=== PATIENT | female | born 1955 | race Caucasian/White ===

== ENCOUNTER 2016-10-11 07:47 | Inpatient (IN) | payer MEDICARE, BC ==
[2016-10-11] MEDS ORDERED: ALBUTEROL SULFATE 0.083% NEB 2.5 MG/3 ML AMPUL NEB ONE ×2 (08:25→12:29)
[2016-10-11] MEDS ORDERED: METHYLPREDNISOLONE INJ 125 MG/2 ML SDV IV ONE (08:25)
--- NOTE | 2016-10-11 08:42 | ER Document Report ---
ED Respiratory Problem - General Time seen by provider: 08:05 Mode of Arrival: Medic Information source: Patient, Emergency Med Personnel TRAVEL OUTSIDE OF THE [place] IN LAST 30 DAYS: No - HPI Patient complains to provider of: COPD, Short of breath Onset: Other - see HPI note Context: Hx COPD At home treatment: Oxygen EMS treatments: Oxygen Associated symptoms: Cough, Difficulty breathing, Hoarseness Similar symptoms previously: Yes Recently seen / treated by doctor: Yes <YOEL BENITEZ - Last Filed: 10/11/16 09:29> <FRANCES CEJA - Last Filed: 10/11/16 10:48> - General Chief Complaint: Breathing Difficulty Stated Complaint: DIFFICULTY BREATHING Notes: Patient is a 61 year old female presenting to the emergency department for difficulty breathing. Patient was diagnosed with pneumonia about 2-3 weeks ago. Pseudomona was cultured 3 weeks ago and the patient has been on tobramycin nebulizer treatments for the past week. Patient states her breathing became worse over the past 12 hours. Patient states it "feels like my lungs are swollen and I can't take a deep breath. Patient has a deep pitch rattle with her cough and states that the cough has gotten worse. Patient last had prednisone about 10-14 days ago. Patient also has a ZIO-XT patch on her left chest wall; this is a 14 day cardiac event monitor and patient's recycle coordinator is Dr. Travis Kaminski in [place]. Patient's primary care physician is Margarita BOJORQUEZ. Patient's licensing representative is Dr. Javier Pantoja in [place]. (YOEL BENITEZ) Patient reports that she saw her recycle coordinator couple weeks ago with complaints of some chest discomfort and palpitations. She was put on a 14 day monitor for this. Her troponin is elevated today, she is unaware if she has ever had a troponin done before and she does not know what it means. She does have a left bundle branch block today, the last EKG done here was 3 years ago and she did not have the bundle branch block then. (FRANCES CEJA) - Related Data Allergies/Adverse Reactions: pentazocine lactate [From Talwin] Allergy (Severe, Verified 02/08/16 06:37) jittery Past Medical History - General Information source: Patient - Social History Smoking Status: Former Smoker Chew tobacco use (# tins/day): No Frequency of alcohol use: None Drug Abuse: None Family History: Reviewed & Not Pertinent, Hypertension - Past Medical History Cardiac Medical History: Reports: Hx Atrial Fibrillation, Hx Hypercholesterolemia, Hx Hypertension Pulmonary Medical History: Reports: Hx Asthma - inhalers, Hx Bronchitis - hx of , Hx COPD - o2 dependent Endocrine Medical History: Reports: Hx Hypothyroidism Musculoskeltal Medical History: Reports Hx Arthritis - osteo, RA Psychiatric Medical History: Reports: Hx Anxiety, Hx Depression Past Surgical History: Reports: Hx Appendectomy, Hx Cholecystectomy, Hx Hysterectomy, Hx Orthopedic Surgery - back - Immunizations Hx Diphtheria, Pertussis, Tetanus Vaccination: Yes Hx Pneumococcal Vaccination: 08/22/14 <YOEL BENITEZ - Last Filed: 10/11/16 09:29> Review of Systems - Review of Systems Constitutional: No symptoms reported EENT: No symptoms reported Cardiovascular: No symptoms reported Respiratory: See HPI, Cough, Short of breath, Wheezing Gastrointestinal: No symptoms reported Genitourinary: No symptoms reported Female Genitourinary: No symptoms reported Musculoskeletal: No symptoms reported Skin: No symptoms reported Hematologic/Lymphatic: No symptoms reported Neurological/Psychological: No symptoms reported -: Yes All other systems reviewed and negative <YOEL BENITEZ - Last Filed: 10/11/16 09:29> Physical Exam - Vital signs Interpretation: Normal - General General appearance: Appears well, Alert In distress: Mild - HEENT Head: Normocephalic, Atraumatic Eyes: Normal Pupils: PERRL Nasal: Other - nasal cannula in place with oxygen Mucous membranes: Moist - Respiratory Respiratory status: No respiratory distress Chest status: Nontender, Other - ZIO-XT patch is present to the left anteior chest wall Breath sounds: Productive cough, Rhonchi, Wheezing, Other - deep pitch rattles or flutters with cough; this is worse but not a new symptom Chest palpation: Normal - Cardiovascular Rhythm: Regular Heart sounds: Normal auscultation Murmur: No - Abdominal Inspection: Normal Distension: No distension Bowel sounds: Normal Tenderness: Nontender Organomegaly: No organomegaly - Back Back: Normal, Nontender - Extremities General upper extremity: Normal inspection, Normal ROM, Normal strength General lower extremity: Normal inspection, Normal ROM, Normal strength - Neurological Neuro grossly intact: Yes Cognition: Normal Orientation: AAOx4 [place] Coma Scale Eye Opening: Spontaneous [place] Com[place] Scale Verbal: Oriented [place] Coma Scale Motor: Obeys Commands [place] Com[place] Scale Total: 15 Speech: Normal - Psychological Associated symptoms: Normal affect, Normal mood - Skin Skin Temperature: Warm Skin Moisture: Dry <YOEL BENITEZ - Last Filed: 10/11/16 09:29> Course - Laboratory Result Diagrams: 10/11/16 08:25 10/11/16 08:25 <YOEL BENITEZ - Last Filed: 10/11/16 09:29> - Laboratory Result Diagrams: 10/11/16 08:25 10/11/16 08:25 - Diagnostic Test Radiology reviewed: Image reviewed, Reports reviewed - Chest x-ray does not show any cardiopulmonary process. - EKG Interpretation by Me EKG shows normal: Sinus rhythm, Jonancy, Intervals, ST-T Waves. abnormal: QRS Complexes Rate: Normal - 73 Rhythm: NSR Jonancy/QRS: LBBB - Consults Antoinette Marquez Time consulted: 10:45 Consulted provider: will come to ER <MARCIALFRANCES - Last Filed: 10/11/16 10:48> - Vital Signs Vital signs: Temp Pulse Resp BP Pulse Ox 97.9 F 75 22 H 141/90 H 93 10/11/16 07:59 10/11/16 07:59 10/11/16 09:01 10/11/16 09:01 10/11/16 09:01 - Laboratory Laboratory results interpreted by me: 10/11/16 08:25 Chloride 92 L Carbon Dioxide 32 H BUN 21 H Creatinine 1.49 H Est GFR ( Amer) 43 L Est GFR (Non-Af Amer) 35 L Glucose 120 H AST 41 H Creatine Kinase 257 H Total Protein 8.3 H Discharge <YOEL BENITEZ - Last Filed: 10/11/16 09:29> - Discharge Admitting Provider: Hospitalist Unit Admitted: IMCU <FRANCES CEJA - Last Filed: 10/11/16 10:48> - Discharge Clinical Impression: Bronchopneumonia due to Pseudomonas species, Elevated troponin, Left bundle branch block (LBBB) on electrocardiogram COPD (chronic obstructive pulmonary disease) Qualifiers: COPD type: unspecified COPD Qualified Code(s): J44.9 - Chronic obstructive pulmonary disease, unspecified Condition: Stable Disposition: ADMITTED INPATIENT Referrals: ELENA,MARGARITA QUEVEDO, AUTO HAULER [Primary Care Provider] - Follow up as needed Scribe Attestation: 10/11/16 10:47 I personally performed the services described in the documentation, reviewed and edited the documentation which was dictated to the scribe in my presence, and it accurately records my words and actions. (FRANCES CEJA) Scribe Documentation - Scribe Written by Scribe:: Yoel Benitez 10/11/16 9:30 acting as scribe for :: Marcial <YOEL BENITEZ - Last Filed: 10/11/16 09:29>
[2016-10-11 09:06] LABS: ABSOLUTE BASOPHILS # (AUTO) 0.1 10^3/uL (0.0-0.2); ABSOLUTE EOSINOPHILS # (AUTO) 0.2 10^3/uL (0.0-0.6); ABSOLUTE LYMPHOCYTES (AUTO) 1.2 10^3/uL (0.5-4.7); ABSOLUTE MONOCYTES (AUTO) 0.5 10^3/uL (0.1-1.4); ABSOLUTE NEUT (AUTO) 5.8 10^3/uL (1.7-8.2); BASOPHILS % (AUTO) 0.9 % (0-2); EOSINOPHILS % (AUTO) 2.5 % (0-6); HEMATOCRIT 43.4 % (36.0-47.0); HEMOGLOBIN 14.5 g/dL (12.0-15.5); HGB HCT DIFFERENCE 0.1; MEAN CORPUSCULAR HEMOGLOBIN 30.3 pg (27.0-33.4); MEAN CORPUSCULAR HGB CONC 33.3 g/dL (32.0-36.0); MEAN CORPUSCULAR VOLUME 91 fl (80-97); RED BLOOD COUNT 4.77 10^6/uL (3.72-5.28); RED CELL DISTRIBUTION WIDTH 13.3 % (11.5-14.0); SEGMENTED NEUTROPHILS % (AUTO) 74.6 % (42-78); WHITE BLOOD COUNT 7.7 10^3/uL (4.0-10.5)
[2016-10-11 09:29] LABS: ALANINE AMINOTRANSFERASE 34 U/L (9-52); ALBUMIN 4.9 g/dL (3.5-5.0); ALKALINE PHOSPHATASE 95 U/L (38-126); ANION GAP 17 (5-19); ASPARTATE AMINO TRANSFERASE 41 U/L (14-36); BILIRUBIN,DIRECT 0.4 mg/dL (0.0-0.4); BILIRUBIN,TOTAL 0.8 mg/dL (0.2-1.3); BLOOD UREA NITROGEN 21 mg/dL (7-20); CALCIUM 9.9 mg/dL (8.4-10.2); CARBON DIOXIDE 32 mmol/L (22-30); CHLORIDE 92 mmol/L (98-107); CREATINE KINASE 257 U/L (30-135); CREATININE RESULT 1.49 mg/dL (0.52-1.25); GLUCOSE 120 mg/dL (75-110); SODIUM 140.5 mmol/L (137-145); TOTAL PROTEIN 8.3 g/dL (6.3-8.2)
[2016-10-11 09:42] LABS: CREATINE KINASE MB 4.28 ng/mL (<4.55)
[2016-10-11 09:51] LABS: TROPONIN I 0.174 ng/mL
[2016-10-11 10:08] LABS: APPEARANCE,URINE CLEAR; BILIRUBIN,URINE NEGATIVE (NEGATIVE); GLUCOSE, URINE NEGATIVE (NEGATIVE); KETONES,URINE NEGATIVE (NEGATIVE); LEUKOCYTE ESTERASE,URINE NEGATIVE (NEGATIVE); NITRITE,URINE NEGATIVE (NEGATIVE); PROTEIN,URINE NEGATIVE (NEGATIVE); UROBILINOGEN,URINE NEGATIVE mg/dL (<2.0)
[2016-10-11] MEDS ORDERED: ACETAMINOPHEN 325 MG TABLET PO PRN (11:06)
[2016-10-11] MEDS ORDERED: ENOXAPARIN SODIUM INJ 30 MG/0.3 ML DISP.SYRIN SUBCUT ONE (12:00)
[2016-10-11] MEDS ORDERED: METHYLPREDNISOLONE INJ 125 MG/2 ML SDV IV SCH ×2 (12:00→15:00)
[2016-10-11] MEDS ORDERED: LEVOFLOXACIN 500 MG/D5W RTU 500 MG/100 ML RTUPB IV ONE (12:00)
[2016-10-11] MEDS ORDERED: IPRATROPIUM/ALBUTEROL 0.5-2.5 MG/3 ML AMPUL NEB PRN (12:27)
[2016-10-11] MEDS ORDERED: LIDOCAINE 5% (700 MG) TRANSDERMAL ADH..PATCH TOP PRN (12:29)
[2016-10-11] MEDS ORDERED: CETIRIZINE 10 MG TABLET PO PRN (12:29)
[2016-10-11] MEDS ORDERED: DIPHENHYDRAMINE HCL 25 MG CAPSULE PO PRN (12:29)
[2016-10-11] MEDS ORDERED: CEFEPIME 2 GM/D5W RTU 2 GM/50 ML RTUPB IV SCH (13:00)
[2016-10-11] MEDS: IPRATROPIUM/ALBUTEROL 0.5-2.5 MG/3 ML AMPUL NEB SCH ×2 (13:31→19:36)
--- NOTE | 2016-10-11 13:59 | PDOC H&P ---
History of Present Illness Admission Date/PCP: 10/11/16 11:06 ELOINA EVANS Patient complains of: Shortness of breath and wheezing History of Present Illness: AMRIT MERIDA is a 61 year old female to [facility]'s emergency room by EMS this morning with difficulty breathing. Patient has a history of chronic bronchitis and COPD, on home oxygen at night. She states she's been on oxygen for the last 1 year. She states she's been treated for a community acquired pneumonia by her bean sorter in [place], Dr Javier Pantoja. She reports being on tobramycin nebulizers for the last several days for reported Pseudomonas infection. She states the nebulizers were ordered 2 weeks ago by her bean sorter however her insurance just agreed to cover them 3 days ago. She states she's had an intermittent productive cough, and wheezing. She denies any fevers, chills or right ears. She denies any chest pain or palpitations. She states today it felt like she was unable to take a deep breath and had wheezing despite using her nebulizer. She therefore called EMS and she was brought here. She has past medical history of COPD, chronic bronchitis, paroxysmal atrial fibrillation, peripheral vascular disease, chronic kidney disease stage III, essential hypertension, chronic back pain requiring opioid analgesics, and dyslipidemia. Past Medical History Cardiac Medical History: Reports: Atrial Fibrillation, Hyperlipidema, Hypertension Denies: Coronary Artery Disease, Myocardial Infarction - pvc Pulmonary Medical History: Reports: Asthma - inhalers, Bronchitis - hx of, Chronic Obstructive Pulmonary Disease (COPD) - o2 dependent Denies: Pneumonia, Tuberculosis EENT Medical History: Reports: None Neurological Medical History: Reports: None Denies: Seizures Endocrine Medical History: Reports: Hypothyroidism Renal/ Medical History: Reports: Chronic Kidney Disease Malignancy Medical History: Reports: None GI Medical History: Reports: None Musculoskeltal Medical History: Reports: Arthritis - osteo, RA Skin Medical History: Reports: None Psychiatric Medical History: Reports: Depression Traumatic Medical History: Reports: None Hematology: Denies: Anemia Infectious Medical History: Reports: None Past Surgical History Past Surgical History: Reports: Appendectomy, Cholecystectomy, Hysterectomy, Orthopedic Surgery - back Denies: Pacemaker Social History Information Source: Patient Lives with: Spouse/Significant other Smoking Status: Former Smoker Number of Years Smokin Last Time Smoked: 7 years ago Frequency of Alcohol Use: None Hx Recreational Drug Use: No Hx Prescription Drug Abuse: No - Advance Directive Resuscitation Status: Full Code Surrogate healthcare decision maker:: is her medical power of health care attorney Family History Family History: CAD, Hyperlipidemia, Hypertension Parental Family History Reviewed: Yes Children Family History Reviewed: Yes Sibling(s) Family History Reviewed.: Yes Medication/Allergy Home Medications: Albuterol Sulfate [Proair HFA Inhalation Aerosol 8.5 gm MDI] 1 puff IH Q4HP PRN 10/11/16 Budesonide/Formoterol Fumarate [Symbicort HFA 160-4.5 mcg Inhaler 6 gm] 2 puff IH BID 10/11/16 Cetirizine HCl [Zyrtec 10 mg Tablet] 10 mg PO DAILYP PRN 10/11/16 Cilostazol 50 mg PO BID 10/11/16 Cyclobenzaprine HCl [Flexeril 10 mg Tablet] 10 mg PO QPM 10/11/16 Diclofenac Sodium [Voltaren] 1 gm TOP QIDP PRN 10/11/16 Diphenhydramine HCl [Benadryl 25 mg Capsule] 25 mg PO DAILYP PRN 10/11/16 Fentanyl [Duragesic 25 mcg/hr Transdermal Patch] 1 patch TOP Q2D 10/11/16 Flecainide Acetate [Tambocor 100 mg Tablet] 100 mg PO Q12@0800,2000 10/11/16 Furosemide [Lasix] 20 mg PO QAM 10/11/16 Hydroxychloroquine Sulfate [Plaquenil 200 mg Tablet] 200 mg PO BID 10/11/16 Ipratropium/Albuterol Sulfate [Duoneb 3 ml Ampul] 1 vial NEB Q4HP PRN 10/11/16 Lidocaine [Lidoderm 5% (700 mg) Transdermal Patch] 1 patch TOP DAILYP PRN Losartan Potassium [Cozaar 25 mg Tablet] 25 mg PO DAILY 10/11/16 Metoprolol Succinate [Toprol Xl 25 mg Tab.sr] 12.5 mg PO DAILY 10/11/16 Oxycodone HCl/Acetaminophen [Percocet 10-325 mg Tablet] 1 tab PO TID 10/11/16 Potassium Chloride [Klor-Con 10 Meq Tablet.sa] 10 meq PO QAM 10/11/16 Tiotropium [place] [Spiriva Respimat] 2 puff IH BID 10/11/16 Tobramycin in 0.225% NaCl [Tobramycin 300 mg/5 ml Ampule] 1 vial NEB BID Vilazodone Hydrochloride [Viibryd] 20 mg PO DAILY 10/11/16 Allergies/Adverse Reactions: pentazocine lactate [From Talanastacia] Allergy (Severe, Verified 02/08/16 06:37) jittery Review of Systems Constitutional: PRESENT: weakness Cardiovascular: PRESENT: dyspnea on exertion Respiratory: PRESENT: cough, dyspnea, sputum Gastrointestinal: ABSENT: abdominal pain, constipation, diarrhea, hematemesis, hematochezia, nausea, vomiting Genitourinary: ABSENT: dysuria, hematuria Musculoskeletal: PRESENT: back pain Integumentary: ABSENT: rash, wounds Neurological: ABSENT: abnormal gait, abnormal speech, confusion, dizziness, focal weakness, syncope Psychiatric: PRESENT: anxiety Endocrine: ABSENT: cold intolerance, heat intolerance, polydipsia, polyuria Hematologic/Lymphatic: ABSENT: easy bleeding, easy bruising Physical Exam Vital Signs: Temp Pulse Resp BP Pulse Ox 97.9 F 75 22 H 127/86 H 92 10/11/16 07:59 10/11/16 07:59 10/11/16 13:00 10/11/16 11:01 10/11/16 13:00 General appearance: PRESENT: no acute distress, well-developed, well-nourished Head exam: PRESENT: atraumatic, normocephalic Eye exam: PRESENT: conjunctiva pink, EOMI, PERRLA. ABSENT: scleral icterus Ear exam: PRESENT: normal external ear exam Mouth exam: PRESENT: moist, tongue midline Neck exam: ABSENT: carotid bruit, JVD, lymphadenopathy, thyromegaly Respiratory exam: PRESENT: prolonged expiratory phas - bilaterally, symmetrical , unlabored, wheezes Cardiovascular exam: PRESENT: RRR. ABSENT: diastolic murmur, rubs, systolic murmur Pulses: PRESENT: normal dorsalis pedis pul Vascular exam: PRESENT: normal capillary refill GI/Abdominal exam: PRESENT: normal bowel sounds, soft. ABSENT: distended, guarding, mass, organolmegaly, rebound, tenderness Rectal exam: PRESENT: deferred Extremities exam: PRESENT: full ROM. ABSENT: calf tenderness, clubbing, pedal edema Musculoskeletal exam: PRESENT: ambulatory, full ROM, normal inspection Neurological exam: PRESENT: alert, awake, oriented to person, oriented to place , oriented to time, oriented to situation, CN II-XII grossly intact. ABSENT: motor sensory deficit Psychiatric exam: PRESENT: anxious Skin exam: PRESENT: dry, intact, warm. ABSENT: cyanosis, rash Results Laboratory Results: 10/11/16 12:02 Troponin I 0.880 Impressions: Chest X-Ray 10/11/16 07:56 IMPRESSION: No acute cardiopulmonary disease. Assessment & Plan - Diagnosis (1) Bronchopneumonia due to Pseudomonas species Is this a current diagnosis for this admission?: YesPlan: Patient was started on IV Levaquin and cefepime. She was given IV methylprednisolone, IV magnesium and DuoNeb nebulizers. We will continue her Spiriva and Symbicort. (2) Obstructive chronic bronchitis with exacerbation Is this a current diagnosis for this admission?: YesPlan: Continue IV methylprednisolone, IV broad-spectrum antibiotics and nebulizer treatments. (3) Elevated troponin Is this a current diagnosis for this admission?: YesPlan: Most likely secondary to COPD exacerbation, however she does have a left bundle branch block with no prior EKG for comparison. We will do serial troponins she rules in for a non-STEMI we will transfer to a tertiary center. She sees Dr. Kaminski at [facility]. (4) Left bundle branch block (LBBB) on electrocardiogram Is this a current diagnosis for this admission?: Yes (5) GERD (gastroesophageal reflux disease) Qualifiers: Esophagitis presence: esophagitis presence not specified Qualified Code(s): K21.9 - Gastro-esophageal reflux disease without esophagitis Is this a current diagnosis for this admission?: Yes (6) Chronic pain Qualifiers: Chronic pain type: other chronic pain Qualified Code(s): G89.29 - Other chronic pain Is this a current diagnosis for this admission?: YesPlan: Patient has chronic neck and back pain during opioid analgesics. We'll continue her home medications. - Time Time Spent: 50 to 70 Minutes Critical Time spent with patient: 25-34 minutes Medications reviewed and adjusted accordingly: Yes
[2016-10-11] MEDS ORDERED: MAGNESIUM SULFATE/D5W 100 ML IV SCH (14:00)
[2016-10-11] MEDS ORDERED: OXYCODONE HCL SR 10 MG TABLET PO SCH (14:00)
--- NOTE | 2016-10-11 15:44 | PDOC TRANSFER SUMMARY ---
General Admission Date/PCP: 10/11/16 11:06 ELOINA EVANS Admission Date: 10/11/16 Transfer Date: 10/11/16 Accepting Facility: [facility] Resuscitation Status: Full Code - Transfer Diagnosis (1) NSTEMI (non-ST elevated myocardial infarction) Is this a current diagnosis for this admission?: YesDiagnosis Summary: Initial troponin was elevated at 0.174, repeat troponin 4 hours later increased to 0.88, will monitor another troponin in 6 hours. She has a new left bundle branch block on EKG compared to previous EKG here. She denies any chest pain only shortness of breath and dyspnea. (2) Bronchopneumonia due to Pseudomonas species Is this a current diagnosis for this admission?: YesDiagnosis Summary: Patient was recently started on tobramycin nebulizers for reported Pseudomonas bronchial pneumonia. There ordered 2 weeks ago she states she just came nebulizers 2 days ago (3) Obstructive chronic bronchitis with exacerbation Is this a current diagnosis for this admission?: Yes (4) Elevated troponin Is this a current diagnosis for this admission?: Yes (5) Left bundle branch block (LBBB) on electrocardiogram Is this a current diagnosis for this admission?: Yes (6) GERD (gastroesophageal reflux disease) Is this a current diagnosis for this admission?: Yes (7) Chronic pain Is this a current diagnosis for this admission?: Yes - Transfer Medications Home Medications: Albuterol Sulfate [Proair HFA Inhalation Aerosol 8.5 gm MDI] 1 puff IH Q4HP PRN 10/11/16 Budesonide/Formoterol Fumarate [Symbicort HFA 160-4.5 mcg Inhaler 6 gm] 2 puff IH BID 10/11/16 Cetirizine HCl [Zyrtec 10 mg Tablet] 10 mg PO DAILYP PRN 10/11/16 Cilostazol 50 mg PO BID 10/11/16 Cyclobenzaprine HCl [Flexeril 10 mg Tablet] 10 mg PO QPM 10/11/16 Diclofenac Sodium [Voltaren] 1 gm TOP QIDP PRN 10/11/16 Diphenhydramine HCl [Benadryl 25 mg Capsule] 25 mg PO DAILYP PRN 10/11/16 Fentanyl [Duragesic 25 mcg/hr Transdermal Patch] 1 patch TOP Q2D 10/11/16 Flecainide Acetate [Tambocor 100 mg Tablet] 100 mg PO Q12@0800,2000 10/11/16 Furosemide [Lasix] 20 mg PO QAM 10/11/16 Hydroxychloroquine Sulfate [Plaquenil 200 mg Tablet] 200 mg PO BID 10/11/16 Ipratropium/Albuterol Sulfate [Duoneb 3 ml Ampul] 1 vial NEB Q4HP PRN 10/11/16 Lidocaine [Lidoderm 5% (700 mg) Transdermal Patch] 1 patch TOP DAILYP PRN Losartan Potassium [Cozaar 25 mg Tablet] 25 mg PO DAILY 10/11/16 Metoprolol Succinate [Toprol Xl 25 mg Tab.sr] 12.5 mg PO DAILY 10/11/16 Oxycodone HCl/Acetaminophen [Percocet 10-325 mg Tablet] 1 tab PO TID 10/11/16 Potassium Chloride [Klor-Con 10 Meq Tablet.sa] 10 meq PO QAM 10/11/16 Tiotropium [place] [Spiriva Respimat] 2 puff IH BID 10/11/16 Tobramycin in 0.225% NaCl [Tobramycin 300 mg/5 ml Ampule] 1 vial NEB BID Vilazodone Hydrochloride [Viibryd] 20 mg PO DAILY 10/11/16 Transfer Medications: Current Medications Acetaminophen (Tylenol 325 Mg Tablet) 650 mg PO Q4HP PRN PRN Reason: pain or temp greater than 101F Stop: 11/10/16 11:05 Albuterol (Ventolin 0.083% Neb 2.5 Mg/3 Ml Ampul) 2.5 mg NEB RTQ2HP PRN PRN Reason: SHORTNESS OF BREATH Stop: 11/10/16 13:13 Albuterol/Ipratropium (Duoneb 3 Ml Ampul) 3 ml NEB RTQ2HP PRN Stop: 11/10/16 12:26 Albuterol/Ipratropium (Duoneb 3 Ml Ampul) 3 ml NEB [id number] [facility] Stop: 11/10/16 13:59 Last Admin: 10/11/16 13:31 Dose: 3 ml Budesonide/Formoterol Fumarate (Symbicort Hfa 160-4.5 Mcg Inhaler 6 Gm) 2 puff IH BID [facility] Stop: 11/10/16 17:59 Cetirizine HCl (Zyrtec 10 Mg Tablet) 10 mg PO DAILYP PRN PRN Reason: SPRING [employer]ERG[employer] Stop: 11/10/16 12:28 Cilostazol (Pletal 100 Mg Tablet) 50 mg PO Q12 RAMÍRE[facility] Stop: 11/10/16 21:59 Cyclobenzaprine HCl (Flexeril 10 Mg Tablet) 10 mg PO QPM RAMÍRE[facility] Stop: 11/10/16 17:59 Diphenhydramine HCl (Benadryl 25 Mg Capsule) 25 mg PO DAILYP PRN PRN Reason: SPRING [employer]ERG[employer] Stop: 11/10/16 12:28 Enoxaparin Sodium (Lovenox Inj 30 Mg/0.3 Ml Disp.Syrin) 30 mg SUBCUT QAM [facility] Stop: 11/11/16 07:59 Fentanyl (Duragesic 25 Mcg/Hr Transdermal Patch) 1 each TOP Q3D@1400 [facility] Stop: 10/18/16 13:59 Flecainide Acetate (Tambocor 100 Mg Tablet) 100 mg PO Q12@0800,2000 [facility] Stop: 11/10/16 19:59 Furosemide (Lasix 20 Mg Tablet) 20 mg PO QAM [facility]RE[facility] Stop: 11/11/16 07:59 Hydroxychloroquine Sulfate (Plaquenil 200 Mg Tablet) 200 mg PO BID [facility] Stop: 11/10/16 17:59 Cefepime HCl (Maxipime Rtu 2 Gm-D5w 50 Ml Premix Bag) 2 gm in 50 mls @ 100 mls/ hr IV DAILY@1300 [facility] Stop: 10/18/16 12:59 Levofloxacin/Dextrose (Levaquin Rtu 250 Mg/D5w 50 Ml Premix) 250 mg in 50 mls @ 50 mls/hr IV QPM [facility] Stop: 10/19/16 17:59 Magnesium Sulfate/Dextrose (Magnesium Sulfate Rtu-D5w 1 Gm/100 Ml Premix) 100 mls @ 100 mls/hr IV Q1H [facility] Stop: 10/11/16 15:59 Lidocaine (Lidoderm 5% (700 Mg) Transdermal Patch) 1 patch TOP DAILYP PRN PRN Reason: BACK PAIN Stop: 11/10/16 12:28 Lorazepam (Ativan 0.5 Mg Tablet) 0.5 mg PO Q6HP PRN Stop: 10/18/16 11:36 Methylprednisolone Sodium Succinate (Solu-Medrol Inj/Pf 125 Mg/2 Ml Sdv) 125 mg IV Q6A [facility] Stop: 11/10/16 14:59 Oxycodone HCl (Oxycontin Sr 10 Mg Tablet) 10 mg PO Q8 [facility] Stop: 10/18/16 13:59 Sodium Chloride (Saline Flush 2.5 Ml Monoject Prefil Syrin) 2.5 ml IV Q8 [facility] Stop: 11/10/16 13:59 - Allergies Allergies/Adverse Reactions: pentazocine lactate [From Talwin] Allergy (Severe, Verified 02/08/16 06:37) jittery - Diet/Activity Discharge Diet: Cardiac Discharge Activity: Activity As Tolerated, Balance Activity w/Rest Physical Exam Vital Signs: Temp Pulse Resp BP Pulse Ox 98.8 F 105 H 23 H 122/68 89 L 10/11/16 14:42 10/11/16 13:31 10/11/16 14:00 10/11/16 14:29 10/11/16 14:29 General appearance: PRESENT: no acute distress, well-developed, well-nourished Head exam: PRESENT: atraumatic, normocephalic Eye exam: PRESENT: conjunctiva pink, EOMI, PERRLA. ABSENT: scleral icterus Ear exam: PRESENT: normal external ear exam Mouth exam: PRESENT: moist, tongue midline Neck exam: ABSENT: carotid bruit, JVD, lymphadenopathy, thyromegaly Respiratory exam: PRESENT: decreased breath sounds - mild bilateral expiratory wheezes, symmetrical, unlabored, wheezes Cardiovascular exam: PRESENT: RRR. ABSENT: diastolic murmur, rubs, systolic murmur Pulses: PRESENT: normal carotid pulses Vascular exam: PRESENT: normal capillary refill GI/Abdominal exam: PRESENT: normal bowel sounds, soft. ABSENT: distended, guarding, mass, organolmegaly, rebound, tenderness Rectal exam: PRESENT: deferred Extremities exam: PRESENT: full ROM. ABSENT: calf tenderness, clubbing, pedal edema Musculoskeletal exam: PRESENT: ambulatory, full ROM, normal inspection Neurological exam: PRESENT: alert, awake, oriented to person, oriented to place , oriented to time, oriented to situation, CN II-XII grossly intact. ABSENT: motor sensory deficit Psychiatric exam: PRESENT: anxious, appropriate affect, normal mood. ABSENT: homicidal ideation, suicidal ideation Skin exam: PRESENT: dry, intact, warm. ABSENT: cyanosis, rash Results Laboratory Results: 10/11/16 12:02 Troponin I 0.880 Impressions: Chest X-Ray 10/11/16 07:56 IMPRESSION: No acute cardiopulmonary disease. Plan Discharge Plan: Transfer to [facility] for higher level of care. Interventional cardiology Time Spent: Less than 30 Minutes
[2016-10-11] MEDS ORDERED: ASPIRIN 81 MG TABLET, CHEWABLE PO ONE (16:00)
[2016-10-11] MEDS: ALBUTEROL SULFATE 0.083% NEB 2.5 MG/3 ML AMPUL NEB PRN (17:16)
[2016-10-11] MEDS: FENTANYL 25 MCG/HR PATCH.TD72 TOP SCH (18:07)
[2016-10-11] MEDS: CYCLOBENZAPRINE HCL 10 MG TABLET PO SCH (18:26)
[2016-10-11] MEDS: BUDESONIDE/FORMOTEROL 160-4.5 MCG 60 PUFF/6 GM MDI IH SCH (18:29)
[2016-10-11] MEDS: CEFEPIME HCL 2 GM in DEXTROSE 5%-WATER 50 ML IV SCH (18:32)
[2016-10-11] MEDS: HYDROXYCHLOROQUINE SULFATE 200 MG TABLET PO SCH (18:32)
[2016-10-11] MEDS: LORAZEPAM 0.5 MG TABLET PO PRN (20:10)
[2016-10-11 20:23] LABS: ARTERIAL BLOOD BASE EXCESS 4.3 mmol/L; ARTERIAL BLOOD O2 SATURATION 85.5 % (94-98)
--- NOTE | 2016-10-11 21:14 | EKG REPORT ---
SEVERITY:- ABNORMAL ECG - SINUS RHYTHM LEFT BUNDLE BRANCH BLOCK : Confirmed by: Zarina Nicole 11-Oct-2016 21:14:31
[2016-10-11] MEDS: FLECAINIDE ACETATE 100 MG TABLET PO SCH (21:59)
[2016-10-11] MEDS: CILOSTAZOL 100 MG TABLET PO SCH (21:59)
[2016-10-11] MEDS ORDERED: CILOSTAZOL 100 MG TABLET PO SCH (22:00)
[2016-10-11] MEDS: SIMVASTATIN 10 MG TABLET PO SCH (22:00)
[2016-10-12] MEDS: METHYLPREDNISOLONE INJ 125 MG/2 ML SDV IV SCH ×4 (00:25→17:11)
[2016-10-12] MEDS: OXYCODONE HCL SR 10 MG TABLET PO SCH ×3 (01:26→17:10)
[2016-10-12] MEDS: LORAZEPAM 0.5 MG TABLET PO PRN ×3 (05:45→17:09)
[2016-10-12 05:58] LABS: HEMATOCRIT 41.2 % (36.0-47.0); HEMOGLOBIN 14.2 g/dL (12.0-15.5); HGB HCT DIFFERENCE 1.4; MEAN CORPUSCULAR HEMOGLOBIN 30.8 pg (27.0-33.4); MEAN CORPUSCULAR HGB CONC 34.5 g/dL (32.0-36.0); MEAN CORPUSCULAR VOLUME 89 fl (80-97); RED BLOOD COUNT 4.62 10^6/uL (3.72-5.28); RED CELL DISTRIBUTION WIDTH 12.9 % (11.5-14.0); WHITE BLOOD COUNT 7.9 10^3/uL (4.0-10.5)
[2016-10-12 06:16] LABS: ANION GAP 14 (5-19); BLOOD UREA NITROGEN 23 mg/dL (7-20); CALCIUM 9.7 mg/dL (8.4-10.2); CARBON DIOXIDE 27 mmol/L (22-30); CHLORIDE 92 mmol/L (98-107); CHOLESTEROL 250.91 mg/dL (0-200); CREATININE RESULT 1.31 mg/dL (0.52-1.25); Direct HDL 72 mg/dL (>40); GLUCOSE 156 mg/dL (75-110); SODIUM 133.4 mmol/L (137-145); TRIGLYCERIDES 83 mg/dL (<150)
[2016-10-12 06:27] LABS: DIRECT LDL 142 mg/dL (<100)
[2016-10-12] MEDS: IPRATROPIUM/ALBUTEROL 0.5-2.5 MG/3 ML AMPUL NEB SCH ×3 (07:51→19:56)
[2016-10-12] MEDS ORDERED: ENOXAPARIN SODIUM INJ 30 MG/0.3 ML DISP.SYRIN SUBCUT SCH (08:00)
[2016-10-12] MEDS: ENOXAPARIN SODIUM INJ 40 MG/0.4 ML DISP.SYRIN SUBCUT SCH (09:30)
[2016-10-12] MEDS: CARVEDILOL 3.125 MG TABLET PO SCH ×2 (09:31→22:51)
[2016-10-12] MEDS: FUROSEMIDE 20 MG TABLET PO SCH (09:31)
[2016-10-12] MEDS: HYDROXYCHLOROQUINE SULFATE 200 MG TABLET PO SCH ×2 (09:32→17:11)
[2016-10-12] MEDS: FLECAINIDE ACETATE 100 MG TABLET PO SCH ×2 (09:32→19:53)
[2016-10-12] MEDS: ASPIRIN 81 MG TABLET, ENT COATED PO SCH (09:32)
[2016-10-12] MEDS: BUDESONIDE/FORMOTEROL 160-4.5 MCG 60 PUFF/6 GM MDI IH SCH ×2 (09:33→17:12)
[2016-10-12] MEDS: CILOSTAZOL 100 MG TABLET PO SCH ×2 (09:34→22:52)
[2016-10-12] MEDS: ALBUTEROL SULFATE 0.083% NEB 2.5 MG/3 ML AMPUL NEB PRN (12:15)
[2016-10-12] MEDS ORDERED: TOBRAMYCIN SULFATE INJ 80 MG/2 ML VIAL NEB SCH (15:00)
[2016-10-12] MEDS ORDERED: TOBRAMYCIN SULFATE NEB 40 MG/ML 30 ML NEB SCH (16:00)
[2016-10-12] MEDS ORDERED: TOBRAMYCIN SULFATE NEB 40 MG/ML 30 ML NEB ONE (16:00)
--- NOTE | 2016-10-12 16:35 | PDOC PROGRESS REPORT ---
Subjective Progress Note for:: 10/12/16 Subjective:: Patient seen on morning rounds. She is on high flow nasal cannula at 50% FIO2. She got dyspneic early this morning when she got up to go to the bathroom and became wheezy and short of breath. She is improved at the time. She also ruled in for a NSTEMI, myocardial infarction. She has no chest pain. She has no prior history of coronary artery disease. She does have a history of atrial fibrillation, She has been sinus rhythm overnight. She states she has other episodes of similar respiratory events. Rest of the review of systems is negative Physical Exam Vital Signs: Temp Pulse Resp BP Pulse Ox 98.7 F 82 18 137/74 H 91 L 10/12/16 12:03 10/12/16 14:12 10/12/16 14:12 10/12/16 12:03 10/12/16 12:03 Intake & Output 10/11/16 10/12/16 10/13/16 06:59 06:59 06:59 Intake Total 745 237 Balance 745 237 Weight 92.2 kg General appearance: PRESENT: no acute distress, obese, well-developed, well- nourished Head exam: PRESENT: atraumatic, normocephalic Eye exam: PRESENT: conjunctiva pink, EOMI, PERRLA. ABSENT: scleral icterus Ear exam: PRESENT: normal external ear exam Mouth exam: PRESENT: dry mucosa Neck exam: ABSENT: carotid bruit, JVD, lymphadenopathy, thyromegaly Respiratory exam: PRESENT: symmetrical, unlabored, wheezes - expiratory bilaterally Cardiovascular exam: PRESENT: RRR. ABSENT: diastolic murmur, rubs, systolic murmur Pulses: PRESENT: normal dorsalis pedis pul Vascular exam: PRESENT: normal capillary refill GI/Abdominal exam: PRESENT: normal bowel sounds, soft. ABSENT: distended, guarding, mass, organolmegaly, rebound, tenderness Rectal exam: PRESENT: deferred Extremities exam: ABSENT: calf tenderness, clubbing, pedal edema Musculoskeletal exam: PRESENT: ambulatory, tenderness Neurological exam: PRESENT: alert, awake, oriented to person, oriented to place , oriented to time, oriented to situation, CN II-XII grossly intact. ABSENT: motor sensory deficit Psychiatric exam: PRESENT: appropriate affect, normal mood. ABSENT: homicidal ideation, suicidal ideation Skin exam: PRESENT: dry, intact, warm. ABSENT: cyanosis, rash Results Laboratory Results: 10/12/16 05:45 10/12/16 05:45 10/11/16 10/12/16 10/12/16 20:05 05:45 05:45 WBC 7.9 RBC 4.62 Hgb 14.2 Hct 41.2 MCV 89 MCH 30.8 MCHC 34.5 RDW 12.9 Plt Count 216 Carbonic Acid 1.25 HCO3/H2CO3 Ratio 22:1 ABG pH 7.46 H ABG pCO2 41.4 ABG pO2 47.6 L ABG HCO3 28.6 H ABG O2 Saturation 85.5 L ABG Base Excess 4.3 FiO2 50% Sodium 133.4 L Potassium 4.0 Chloride 92 L Carbon Dioxide 27 Anion Gap 14 BUN 23 H Creatinine 1.31 H Est GFR ( Amer) 50 L Est GFR (Non-Af Amer) 41 L Glucose 156 H Calcium 9.7 Triglycerides 83 Cholesterol 250.91 H LDL Cholesterol Direct 142 H VLDL Cholesterol 17.0 HDL Cholesterol 72 10/11/16 10/11/16 10/12/16 12:02 18:22 00:34 Troponin I 0.880 1.410 1.740 10/12/16 07:39 Troponin I 1.860 Impressions: Chest X-Ray 10/11/16 07:56 IMPRESSION: No acute cardiopulmonary disease. Assessment & Plan - Diagnosis (1) NSTEMI (non-ST elevated myocardial infarction) Is this a current diagnosis for this admission?: YesPlan: Patient is awaiting transfer to [facility] for cardiology. Started on aspirin , beta mey and statin. Pain free (2) Bronchopneumonia due to Pseudomonas species Is this a current diagnosis for this admission?: YesPlan: Patient was started on IV Levaquin and cefepime. She was given IV methylprednisolone, IV magnesium and DuoNeb nebulizers. We will continue her Spiriva and Symbicort. (3) Obstructive chronic bronchitis with exacerbation Is this a current diagnosis for this admission?: YesPlan: Continue IV methylprednisolone, IV broad-spectrum antibiotics and nebulizer treatments. (4) Elevated troponin Is this a current diagnosis for this admission?: YesPlan: Pain free. New left bundle branch block on ekg (5) Left bundle branch block (LBBB) on electrocardiogram Is this a current diagnosis for this admission?: Yes (6) GERD (gastroesophageal reflux disease) Qualifiers: Esophagitis presence: esophagitis presence not specified Qualified Code(s): K21.9 - Gastro-esophageal reflux disease without esophagitis Is this a current diagnosis for this admission?: YesPlan: PPI therapy (7) Chronic pain Qualifiers: Chronic pain type: other chronic pain Qualified Code(s): G89.29 - Other chronic pain Is this a current diagnosis for this admission?: YesPlan: Patient has chronic neck and back pain during opioid analgesics. We'll continue her home medications. - Time Time Spent with patient: 25-34 minutes Critical Time spent with patient: 15-24 minutes Medications reviewed and adjusted accordingly: Yes Anticipated discharge: [facility]: when bed available
[2016-10-12] MEDS: CYCLOBENZAPRINE HCL 10 MG TABLET PO SCH (17:11)
[2016-10-12] MEDS: LEVOFLOXACIN 250 MG/D5W RTU 250 MG/50 ML RTUPB IV SCH (17:14)
[2016-10-12] MEDS: CEFEPIME HCL 2 GM in DEXTROSE 5%-WATER 50 ML IV SCH (19:53)
[2016-10-12] MEDS: SIMVASTATIN 10 MG TABLET PO SCH (22:52)
[2016-10-13] MEDS: LORAZEPAM 0.5 MG TABLET PO PRN ×3 (00:29→17:17)
[2016-10-13] MEDS: METHYLPREDNISOLONE INJ 125 MG/2 ML SDV IV SCH ×4 (00:29→17:16)
[2016-10-13] MEDS: OXYCODONE HCL SR 10 MG TABLET PO SCH ×3 (02:23→17:16)
[2016-10-13] MEDS: IPRATROPIUM/ALBUTEROL 0.5-2.5 MG/3 ML AMPUL NEB SCH ×3 (07:53→20:14)
[2016-10-13] MEDS: TOBRAMYCIN SULFATE NEB 40 MG/ML 30 ML NEB SCH ×2 (07:53→21:50)
[2016-10-13] MEDS ORDERED: LORAZEPAM INJ 2 MG/1 ML VIAL IV PRN (09:29)
[2016-10-13] MEDS ORDERED: (PENDING PHARMACY ID) (Oxycodone Hcl/Acetaminophen [Percocet 10-325 Mg Tablet] 1 TAB) PO SCH (10:00)
[2016-10-13] MEDS ORDERED: (PENDING PHARMACY ID) (Tiotropium Bromide [Spiriva Respimat] 2 PUFF) IH SCH (10:00)
[2016-10-13] MEDS ORDERED: VILAZODONE HYDROCHLORIDE 20 MG PO SCH (10:00)
[2016-10-13] MEDS ORDERED: METOPROLOL SUCCINATE 25 MG TAB.SR.24H PO ONE (11:00)
--- NOTE | 2016-10-13 11:41 | PDOC CONSULTATION ---
Consultation Consult Date: 10/13/16 Attending physician:: BRENDAN ROY Consult reason:: dyspnea History of Present Illness Admission Date/PCP: 10/11/16 11:06 ELOINA EVANS History of Present Illness: AMRIT MERIDA is a 61 year old female to [facility]'s emergency room by EMS this morning with difficulty breathing. Patient has a history of chronic bronchitis and COPD, on home oxygen at night. She states she's been on oxygen for the last 1 year. She states she's been treated for a community acquired pneumonia by her loom inspector in [place], Dr Javier Pantoja. She reports being on tobramycin nebulizers for the last several days for reported Pseudomonas infection. She states the nebulizers were ordered 2 weeks ago by her loom inspector however her insurance just agreed to cover them 3 days ago. She states she's had an intermittent productive cough, and wheezing. She denies any fevers, chills or r nausea vomiting diarrhea rhinorrhea or sore throat. She denies history of chronic lung disease as a child or adolescent she admits to exposure to passive smoke as a child as well as an adult she herself has not smoked in the last month and has approximately [id number]-ivgm history. She denies any significant occupational exposure to potential respiratory toxins. She has 1 dog and did not recent travel. 2 pillow orthopnea recently changed to 3 pillows rare PND rare nocturnal cough but admits to edema she denies snoring but admits to restless sleep unrestful sleep nocturia and daytime somnolence. Past Medical History Cardiac Medical History: Reports: Atrial Fibrillation, Hyperlipidema, Hypertension Denies: Coronary Artery Disease, Myocardial Infarction - pvc Pulmonary Medical History: Reports: Asthma - inhalers, Bronchitis - hx of, Chronic Obstructive Pulmonary Disease (COPD) - o2 dependent Denies: Pneumonia, Tuberculosis EENT Medical History: Reports: None Neurological Medical History: Reports: None Denies: Seizures Endocrine Medical History: Reports: Hypothyroidism Renal/ Medical History: Reports: Chronic Kidney Disease Malignancy Medical History: Reports: None GI Medical History: Reports: None Musculoskeltal Medical History: Reports: Arthritis - osteo, RA Skin Medical History: Reports: None Psychiatric Medical History: Reports: Depression Traumatic Medical History: Reports: None Hematology: Denies: Anemia Infectious Medical History: Reports: None Past Surgical History Past Surgical History: Reports: Appendectomy, Cholecystectomy, Hysterectomy, Orthopedic Surgery - back Denies: Pacemaker Social History Information Source: Patient, H Records Lives with: Spouse/Significant other Smoking Status: Former Smoker Number of Years Smokin Last Time Smoked: 7 years ago Passive smoke exposure as: Both Frequency of Alcohol Use: None Hx Recreational Drug Use: No Drugs: None Hx Prescription Drug Abuse: No Do you have pets?: Yes Have you had any respiratory illnesses as a child?: No Have you travelled outside of [place] in the past 12 months?: No - Advance Directive Resuscitation Status: Full Code Family History Family History: CAD, Hyperlipidemia, Hypertension Parental Family History Reviewed: No - Hypertension coronary artery disease cerebrovascular disease Children Family History Reviewed: No Sibling(s) Family History Reviewed.: No Medication/Allergy Home Medications: Albuterol Sulfate [Proair HFA Inhalation Aerosol 8.5 gm MDI] 1 puff IH Q4HP PRN 10/11/16 Budesonide/Formoterol Fumarate [Symbicort HFA 160-4.5 mcg Inhaler 6 gm] 2 puff IH BID 10/11/16 Cetirizine HCl [Zyrtec 10 mg Tablet] 10 mg PO DAILYP PRN 10/11/16 Cilostazol 50 mg PO BID 10/11/16 Cyclobenzaprine HCl [Flexeril 10 mg Tablet] 10 mg PO QPM 10/11/16 Diclofenac Sodium [Voltaren] 1 gm TOP QIDP PRN 10/11/16 Diphenhydramine HCl [Benadryl 25 mg Capsule] 25 mg PO DAILYP PRN 10/11/16 Fentanyl [Duragesic 25 mcg/hr Transdermal Patch] 1 patch TOP Q2D 10/11/16 Flecainide Acetate [Tambocor 100 mg Tablet] 100 mg PO Q12@0800,2000 10/11/16 Furosemide [Lasix] 20 mg PO QAM 10/11/16 Hydroxychloroquine Sulfate [Plaquenil 200 mg Tablet] 200 mg PO BID 10/11/16 Ipratropium/Albuterol Sulfate [Duoneb 3 ml Ampul] 1 vial NEB Q4HP PRN 10/11/16 Lidocaine [Lidoderm 5% (700 mg) Transdermal Patch] 1 patch TOP DAILYP PRN Losartan Potassium [Cozaar 25 mg Tablet] 25 mg PO DAILY 10/11/16 Metoprolol Succinate [Toprol Xl 25 mg Tab.sr] 12.5 mg PO DAILY 10/11/16 Oxycodone HCl/Acetaminophen [Percocet 10-325 mg Tablet] 1 tab PO TID 10/11/16 Potassium Chloride [Klor-Con 10 Meq Tablet.sa] 10 meq PO QAM 10/11/16 Tiotropium [place] [Spiriva Respimat] 2 puff IH BID 10/11/16 Tobramycin in 0.225% NaCl [Tobramycin 300 mg/5 ml Ampule] 1 vial NEB BID Vilazodone Hydrochloride [Viibryd] 20 mg PO DAILY 10/11/16 Allergies/Adverse Reactions: pentazocine lactate [From Michaela] Allergy (Severe, Verified 02/08/16 06:37) jittery Physical Exam Vital Signs: Temp Pulse Resp BP Pulse Ox 98.0 F 104 H 28 H 138/75 H 94 10/13/16 07:28 10/13/16 07:53 10/13/16 11:03 10/13/16 07:28 10/13/16 11:03 Intake & Output 10/12/16 10/13/16 10/14/16 06:59 06:59 06:59 Intake Total 745 669 Output Total 650 Balance 745 19 Weight 92.2 kg 92 kg General appearance: PRESENT: cooperative, disheveled, mild distress, obese Head exam: PRESENT: atraumatic, normocephalic Eye exam: PRESENT: conjunctiva pale, EOMI Neck exam: ABSENT: carotid bruit, JVD, lymphadenopathy, thyromegaly Respiratory exam: PRESENT: decreased breath sounds, prolonged expiratory phas, rhonchi, symmetrical Cardiovascular exam: PRESENT: RRR, +S1, +S2 Pulses: PRESENT: normal radial pulses GI/Abdominal exam: PRESENT: normal bowel sounds, soft. ABSENT: distended, guarding, mass, organolmegaly, rebound, tenderness Rectal exam: PRESENT: deferred Gentrourinary exam: PRESENT: indwelling catheter Musculoskeletal exam: PRESENT: normal inspection Neurological exam: PRESENT: alert, awake Psychiatric exam: PRESENT: anxious Skin exam: PRESENT: dry, warm Results Laboratory Results: 10/12/16 05:45 10/11/16 10/11/16 10/12/16 12:02 18:22 00:34 Troponin I 0.880 1.410 1.740 10/12/16 10/12/16 10/12/16 07:39 11:54 21:28 Troponin I 1.860 2.310 1.950 10/13/16 03:31 Troponin I 1.470 Impressions: Chest X-Ray 10/11/16 07:56 IMPRESSION: No acute cardiopulmonary disease. Assessment & Plan - Diagnosis (1) COPD (chronic obstructive pulmonary disease) Qualifiers: COPD type: unspecified COPD Qualified Code(s): J44.9 - Chronic obstructive pulmonary disease, unspecified Is this a current diagnosis for this admission?: YesPlan: Patient is on a regimen of inhaled as well as systemic corticosteroids and long- acting beta agonists long-acting muscarinic I will add Daliresp hopefully this will be tolerated well (2) Bronchopneumonia due to Pseudomonas species Is this a current diagnosis for this admission?: YesPlan: Nebulized tobramycin 300 twice daily (3) Elevated troponin Is this a current diagnosis for this admission?: YesPlan: 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
[2016-10-13 11:49] LABS: ARTERIAL BLOOD BASE EXCESS 4.1 mmol/L; ARTERIAL BLOOD O2 SATURATION 99.5 % (94-98)
[2016-10-13 12:04] LABS: ANION GAP 15 (5-19); BLOOD UREA NITROGEN 33 mg/dL (7-20); CALCIUM 9.6 mg/dL (8.4-10.2); CARBON DIOXIDE 28 mmol/L (22-30); CHLORIDE 88 mmol/L (98-107); CREATINE KINASE 233 U/L (30-135); GLUCOSE 132 mg/dL (75-110); POTASSIUM 4.3 mmol/L (3.6-5.0)
[2016-10-13] MEDS: FUROSEMIDE 20 MG TABLET PO SCH (12:39)
[2016-10-13] MEDS: ASPIRIN 81 MG TABLET, ENT COATED PO SCH (12:40)
[2016-10-13] MEDS: FLECAINIDE ACETATE 100 MG TABLET PO SCH ×2 (12:41→21:59)
[2016-10-13] MEDS: HYDROXYCHLOROQUINE SULFATE 200 MG TABLET PO SCH ×2 (12:41→17:17)
[2016-10-13] MEDS: CILOSTAZOL 100 MG TABLET PO SCH ×2 (12:42→21:59)
[2016-10-13] MEDS: ENOXAPARIN SODIUM INJ 40 MG/0.4 ML DISP.SYRIN SUBCUT SCH (12:43)
[2016-10-13] MEDS: BUDESONIDE/FORMOTEROL 160-4.5 MCG 60 PUFF/6 GM MDI IH SCH ×2 (12:43→17:21)
[2016-10-13] MEDS: AZITHROMYCIN 500 MG in DEXTROSE 5%-WATER 250 ML IV SCH (12:45)
[2016-10-13 12:49] LABS: CREATINE KINASE MB 10.4 ng/mL (<4.55); TROPONIN I 1.01 ng/mL
[2016-10-13] MEDS: OXYCODONE-ACETAMINOPHEN 5-325 MG TABLET PO SCH ×2 (12:49→22:00)
[2016-10-13] MEDS: OXYCODONE HCL IR 5 MG TABLET PO SCH ×2 (12:49→22:00)
--- NOTE | 2016-10-13 15:09 | PDOC PROGRESS REPORT ---
Subjective Progress Note for:: 10/13/16 Subjective:: Patient seen on morning rounds. She is on high flow nasal cannula at 50% FIO2. She got dyspneic early this morning when she got up to go to the bathroom and became wheezy and short of breath. She is now on nasal BIPAP 12/8 100 % FIO2. With marginal oxygen saturations. Dr Dumont has been consulted since it does not appear she will be transferring to [facility] anytime soon. She also ruled in for a NSTEMI, myocardial infarction. She has no chest pain. She has no prior history of coronary artery disease. She does have a history of atrial fibrillation, She has been sinus rhythm overnight. She states she has other episodes of similar respiratory events. Rest of the review of systems is negative Physical Exam Vital Signs: Temp Pulse Resp BP Pulse Ox 97.7 F 49 L 22 H 140/85 H 100 10/13/16 11:36 10/13/16 11:36 10/13/16 11:36 10/13/16 11:36 10/13/16 11:36 Intake & Output 10/12/16 10/13/16 10/14/16 06:59 06:59 06:59 Intake Total 745 669 500 Output Total 650 300 Balance 745 19 200 Weight 92.2 kg 92 kg General appearance: PRESENT: cooperative, mild distress, obese, thin, well- developed, well-nourished Head exam: PRESENT: atraumatic, normocephalic Eye exam: PRESENT: conjunctiva pink, EOMI, PERRLA. ABSENT: scleral icterus Ear exam: PRESENT: bleeding Mouth exam: PRESENT: moist, tongue midline Neck exam: ABSENT: carotid bruit, JVD, lymphadenopathy, thyromegaly Respiratory exam: PRESENT: accessory muscle use, decreased breath sounds, prolonged expiratory phas, symmetrical, tachypnea, wheezes Cardiovascular exam: PRESENT: RRR. ABSENT: diastolic murmur, rubs, systolic murmur Pulses: PRESENT: normal dorsalis pedis pul Vascular exam: PRESENT: normal capillary refill GI/Abdominal exam: PRESENT: normal bowel sounds, soft Rectal exam: PRESENT: deferred Extremities exam: PRESENT: full ROM. ABSENT: calf tenderness, clubbing, pedal edema Musculoskeletal exam: PRESENT: ambulatory, full ROM, normal inspection Neurological exam: PRESENT: alert, awake, oriented to person, oriented to place , oriented to time, oriented to situation, CN II-XII grossly intact. ABSENT: motor sensory deficit Psychiatric exam: PRESENT: anxious Skin exam: PRESENT: dry, intact, warm. ABSENT: cyanosis, rash Results Laboratory Results: 10/12/16 05:45 10/13/16 11:33 10/13/16 10/13/16 11:00 11:33 Carbonic Acid 1.38 H HCO3/H2CO3 Ratio 21:1 ABG pH 7.43 ABG pCO2 45.7 H ABG pO2 236.3 H ABG HCO3 29.3 H ABG O2 Saturation 99.5 H ABG Base Excess 4.1 FiO2 100% Sodium 131.0 L Potassium 4.3 Chloride 88 L Carbon Dioxide 28 Anion Gap 15 BUN 33 H Creatinine 1.30 H Est GFR ( Amer) 50 L Est GFR (Non-Af Amer) 42 L Glucose 132 H Calcium 9.6 10/11/16 10/11/16 10/12/16 12:02 18:22 00:34 Creatine Kinase CK-MB (CK-2) Troponin I 0.880 1.410 1.740 10/12/16 10/12/16 10/12/16 07:39 11:54 21:28 Creatine Kinase CK-MB (CK-2) Troponin I 1.860 2.310 1.950 10/13/16 10/13/16 10/13/16 03:31 11:33 11:33 Creatine Kinase 233 H CK-MB (CK-2) 10.40 H Troponin I 1.470 1.010 Impressions: Chest X-Ray 10/11/16 07:56 IMPRESSION: No acute cardiopulmonary disease. Assessment & Plan - Diagnosis (1) Acute and chronic respiratory failure with hypoxia Is this a current diagnosis for this admission?: YesPlan: Patient's on IV steroids, inhaled steroids, Spiriva, DuoNeb nebulizers and IV broad-spectrum antibiotic. Dr. Dumont was consult for pulmonary assistance. He agrees with the present plan. We discussed possible need for intubation should she further decline. Patient refuses intubation. She understands ramifications of this (2) NSTEMI (non-ST elevated myocardial infarction) Is this a current diagnosis for this admission?: YesPlan: Patient is awaiting transfer to [facility] for cardiology. Started on aspirin , beta mey and statin. Pain free. It clinically can be done on an outpatient basis. (3) Bronchopneumonia due to Pseudomonas species Is this a current diagnosis for this admission?: YesPlan: Patient was started on IV Levaquin and cefepime. She was given IV methylprednisolone, IV magnesium and DuoNeb nebulizers. We will continue her Spiriva and Symbicort. (4) Obstructive chronic bronchitis with exacerbation Is this a current diagnosis for this admission?: YesPlan: Continue IV methylprednisolone, IV broad-spectrum antibiotics and nebulizer treatments. (5) Left bundle branch block (LBBB) on electrocardiogram Is this a current diagnosis for this admission?: Yes (6) GERD (gastroesophageal reflux disease) Qualifiers: Esophagitis presence: esophagitis presence not specified Qualified Code(s): K21.9 - Gastro-esophageal reflux disease without esophagitis Is this a current diagnosis for this admission?: YesPlan: PPI therapy (7) Chronic pain Qualifiers: Chronic pain type: other chronic pain Qualified Code(s): G89.29 - Other chronic pain Is this a current diagnosis for this admission?: YesPlan: Patient has chronic neck and back pain during opioid analgesics. We'll continue her home medications. - Time Time Spent with patient: 25-34 minutes Critical Time spent with patient: 25-34 minutes Medications reviewed and adjusted accordingly: Yes
[2016-10-13] MEDS: CEFEPIME HCL 2 GM in DEXTROSE 5%-WATER 50 ML IV SCH (17:18)
[2016-10-13] MEDS: LEVOFLOXACIN 250 MG/D5W RTU 250 MG/50 ML RTUPB IV SCH (17:19)
[2016-10-13] MEDS: CYCLOBENZAPRINE HCL 10 MG TABLET PO SCH (17:21)
--- NOTE | 2016-10-13 19:37 | EKG REPORT ---
SEVERITY:- ABNORMAL ECG - SINUS RHYTHM PROBABLE LEFT ATRIAL ABNORMALITY LVH WITH IVCD, LAD AND SECONDARY REPOL ABNRM : Confirmed by: Zarina Nicole 13-Oct-2016 19:36:22
[2016-10-13] MEDS: SIMVASTATIN 10 MG TABLET PO SCH (21:59)
[2016-10-14] MEDS: METHYLPREDNISOLONE INJ 125 MG/2 ML SDV IV SCH ×4 (01:09→17:55)
[2016-10-14] MEDS: OXYCODONE HCL SR 10 MG TABLET PO SCH ×3 (02:19→17:54)
[2016-10-14] MEDS: LORAZEPAM 0.5 MG TABLET PO PRN ×2 (02:21→10:29)
[2016-10-14 05:41] LABS: ANION GAP 15 (5-19); BLOOD UREA NITROGEN 33 mg/dL (7-20); CALCIUM 9.2 mg/dL (8.4-10.2); CARBON DIOXIDE 28 mmol/L (22-30); CHLORIDE 86 mmol/L (98-107); GLUCOSE 133 mg/dL (75-110); POTASSIUM 4.6 mmol/L (3.6-5.0); SODIUM 128.9 mmol/L (137-145)
[2016-10-14] MEDS: OXYCODONE HCL IR 5 MG TABLET PO SCH ×2 (06:11→14:45)
[2016-10-14] MEDS: OXYCODONE-ACETAMINOPHEN 5-325 MG TABLET PO SCH ×2 (06:12→14:44)
[2016-10-14] MEDS ORDERED: FUROSEMIDE INJ/PF 20 MG/2 ML SDV IV ONE (07:00)
[2016-10-14] MEDS ORDERED: POTASSIUM CHLORIDE 10 MEQ TABLET.SA PO SCH (08:00)
[2016-10-14] MEDS ORDERED: FUROSEMIDE INJ/PF 40 MG/4 ML SDV IV ONE (08:15)
[2016-10-14] MEDS: IPRATROPIUM/ALBUTEROL 0.5-2.5 MG/3 ML AMPUL NEB SCH ×2 (08:22→14:30)
[2016-10-14] MEDS: TOBRAMYCIN SULFATE NEB 40 MG/ML 30 ML NEB SCH (09:25)
[2016-10-14] MEDS ORDERED: METOPROLOL SUCCINATE 25 MG TAB.SR.24H PO SCH (10:00)
[2016-10-14] MEDS: CILOSTAZOL 100 MG TABLET PO SCH (10:28)
[2016-10-14] MEDS: HYDROXYCHLOROQUINE SULFATE 200 MG TABLET PO SCH ×2 (10:28→17:57)
[2016-10-14] MEDS: FLECAINIDE ACETATE 100 MG TABLET PO SCH (10:28)
[2016-10-14] MEDS: ASPIRIN 81 MG TABLET, ENT COATED PO SCH (10:29)
[2016-10-14] MEDS: BUDESONIDE/FORMOTEROL 160-4.5 MCG 60 PUFF/6 GM MDI IH SCH ×2 (10:30→18:10)
[2016-10-14] MEDS: ENOXAPARIN SODIUM INJ 40 MG/0.4 ML DISP.SYRIN SUBCUT SCH (10:33)
[2016-10-14] MEDS: FENTANYL 25 MCG/HR PATCH.TD72 TOP SCH (10:38)
--- NOTE | 2016-10-14 11:25 | PDOC PROGRESS REPORT ---
Subjective Progress Note for:: 10/14/16 Subjective:: Patient seen on morning rounds. She is on nasal cannula with an Oxymizer. She appears more comfortable this morning. She denies significant dyspnea at the present time. She states her cough and chest tightness has improved. She has periods of wheezing, not as frequent as she was having. She denies any chest pain, palpitations or dyspnea. She denies any nausea, vomiting or diarrhea. Rest of the review of systems is negative. Physical Exam Vital Signs: Temp Pulse Resp BP Pulse Ox 98.3 F 68 19 120/50 L 90 L 10/14/16 07:45 10/14/16 07:45 10/14/16 07:45 10/14/16 07:45 10/14/16 07:45 Intake & Output 10/13/16 10/14/16 10/15/16 06:59 06:59 06:59 Intake Total 669 1943 Output Total 650 600 Balance 19 1343 Weight 92 kg 91.8 kg General appearance: PRESENT: no acute distress, obese, well-developed, well- nourished Head exam: PRESENT: atraumatic, normocephalic Ear exam: PRESENT: normal external ear exam Mouth exam: PRESENT: moist, tongue midline Neck exam: ABSENT: carotid bruit, JVD, lymphadenopathy, thyromegaly Respiratory exam: PRESENT: decreased breath sounds, symmetrical, unlabored, wheezes Cardiovascular exam: PRESENT: RRR. ABSENT: diastolic murmur, rubs, systolic murmur Pulses: PRESENT: normal dorsalis pedis pul Vascular exam: PRESENT: normal capillary refill GI/Abdominal exam: PRESENT: normal bowel sounds, soft. ABSENT: distended, guarding, mass, organolmegaly, rebound, tenderness Rectal exam: PRESENT: deferred Extremities exam: PRESENT: full ROM. ABSENT: calf tenderness, clubbing, pedal edema Musculoskeletal exam: PRESENT: ambulatory, full ROM, normal inspection Neurological exam: PRESENT: alert, awake, oriented to person, oriented to place , oriented to time, oriented to situation, CN II-XII grossly intact. ABSENT: motor sensory deficit Psychiatric exam: PRESENT: appropriate affect, normal mood. ABSENT: homicidal ideation, suicidal ideation Skin exam: PRESENT: dry, intact, warm. ABSENT: cyanosis, rash Results Laboratory Results: 10/12/16 05:45 10/14/16 04:17 10/13/16 10/13/16 10/14/16 11:00 11:33 04:17 Carbonic Acid 1.38 H HCO3/H2CO3 Ratio 21:1 ABG pH 7.43 ABG pCO2 45.7 H ABG pO2 236.3 H ABG HCO3 29.3 H ABG O2 Saturation 99.5 H ABG Base Excess 4.1 FiO2 100% Sodium 131.0 L 128.9 L Potassium 4.3 4.6 Chloride 88 L 86 L Carbon Dioxide 28 28 Anion Gap 15 15 BUN 33 H 33 H Creatinine 1.30 H 1.30 H Est GFR ( Amer) 50 L 50 L Est GFR (Non-Af Amer) 42 L 42 L Glucose 132 H 133 H Calcium 9.6 9.2 10/11/16 10/11/16 10/12/16 12:02 18:22 00:34 Creatine Kinase CK-MB (CK-2) Troponin I 0.880 1.410 1.740 NT-Pro-B Natriuret Pep 10/12/16 10/12/16 10/12/16 07:39 11:54 21:28 Creatine Kinase CK-MB (CK-2) Troponin I 1.860 2.310 1.950 NT-Pro-B Natriuret Pep 10/13/16 10/13/16 10/13/16 03:31 11:33 11:33 Creatine Kinase 233 H CK-MB (CK-2) 10.40 H Troponin I 1.470 1.010 NT-Pro-B Natriuret Pep 10/14/16 04:17 Creatine Kinase CK-MB (CK-2) Troponin I NT-Pro-B Natriuret Pep 27634 H Impressions: Chest X-Ray 10/11/16 07:56 IMPRESSION: No acute cardiopulmonary disease. Assessment & Plan - Diagnosis (1) Acute and chronic respiratory failure with hypoxia Is this a current diagnosis for this admission?: YesPlan: Her respiratory status is improved from yesterdayPatient's on IV steroids, inhaled steroids, Spiriva, DuoNeb nebulizers and IV broad-spectrum antibiotic. Dr. Dumont was consulted for pulmonary assistance. He agrees with the present plan. We discussed possible need for intubation should she further decline. Patient refuses intubation. She understands ramifications of this (2) NSTEMI (non-ST elevated myocardial infarction) Is this a current diagnosis for this admission?: YesPlan: Patient is awaiting transfer to [facility] for cardiology. Started on aspirin , beta mey and statin. Pain free. (3) Bronchopneumonia due to Pseudomonas species Is this a current diagnosis for this admission?: YesPlan: Patient was started on IV Levaquin and cefepime. She was given IV methylprednisolone, IV magnesium and DuoNeb nebulizers. We will continue her Spiriva and Symbicort. (4) Obstructive chronic bronchitis with exacerbation Is this a current diagnosis for this admission?: YesPlan: Continue IV methylprednisolone, IV broad-spectrum antibiotics and nebulizer treatments. (5) Left bundle branch block (LBBB) on electrocardiogram Is this a current diagnosis for this admission?: Yes (6) GERD (gastroesophageal reflux disease) Qualifiers: Esophagitis presence: esophagitis presence not specified Qualified Code(s): K21.9 - Gastro-esophageal reflux disease without esophagitis Is this a current diagnosis for this admission?: YesPlan: PPI therapy (7) Chronic pain Qualifiers: Chronic pain type: other chronic pain Qualified Code(s): G89.29 - Other chronic pain Is this a current diagnosis for this admission?: YesPlan: Patient has chronic neck and back pain during opioid analgesics. We'll continue her home medications. - Time Time Spent with patient: 25-34 minutes Critical Time spent with patient: 15-24 minutes Medications reviewed and adjusted accordingly: Yes
[2016-10-14] MEDS: AZITHROMYCIN 500 MG in DEXTROSE 5%-WATER 250 ML IV SCH (14:50)
[2016-10-14 16:00] VITALS: BP 158/76
[2016-10-14] MEDS: LEVOFLOXACIN 250 MG/D5W RTU 250 MG/50 ML RTUPB IV SCH (17:57)
== END 2016-10-14 19:10 | disposition short-term general hospital (02) | DRG 280 ==
LOC: ER 07:47 → EH 11:06 → UNDOADMIN 11:11 → 3N 14:52
PROVIDERS: ADMIT Emergency Medicine; ATTEND Emergency Medicine
DX: I21.4 Non-ST elevation (NSTEMI) myocardial infarction (principal); J15.1 Pneumonia due to Pseudomonas; J96.21 Acute and chronic respiratory failure with hypoxia; I44.7 Left bundle-branch block, unspecified; J44.9 Chronic obstructive pulmonary disease, unspecified; Z99.81 Dependence on supplemental oxygen; E03.9 Hypothyroidism, unspecified; I12.9 Hypertensive chronic kidney disease with stage 1 through stage 4 chronic kidney disease, or unspecified chronic kidney disease; M06.9 Rheumatoid arthritis, unspecified; N18.3 Chronic kidney disease, stage 3 (moderate); I73.9 Peripheral vascular disease, unspecified; I48.0 Paroxysmal atrial fibrillation; F32.9 Major depressive disorder, single episode, unspecified; K21.9 Gastro-esophageal reflux disease without esophagitis; G89.29 Other chronic pain; Z79.891 Long term (current) use of opiate analgesic; E66.9 Obesity, unspecified; Z90.49 Acquired absence of other specified parts of digestive tract; Z90.710 Acquired absence of both cervix and uterus; Z79.899 Other long term (current) drug therapy; Z82.49 Family history of ischemic heart disease and other diseases of the circulatory system
CPT/HCPCS: 36415; 71010; 80048; 80053; 80061; 81001; 82550; 82553; 82803; 83880; 84484; 85025; 85027; 87040; 93005; 93010; 94640; 94660; 96374; 99285; J0456; J0692; J1650; J1940; J1956; J2060; J2930; J3490; J7060; J7620; J7685

== ENCOUNTER 2018-10-31 05:00 | Emergency (ER) | payer MEDICARE, BC ==
[2018-10-31 05:59] LABS: ABSOLUTE BASOPHILS # (AUTO) 0.1 10^3/uL (0.0-0.2); ABSOLUTE EOSINOPHILS # (AUTO) 0.2 10^3/uL (0.0-0.6); ABSOLUTE LYMPHOCYTES (AUTO) 2.4 10^3/uL (0.5-4.7); ABSOLUTE MONOCYTES (AUTO) 0.4 10^3/uL (0.1-1.4); ABSOLUTE NEUT (AUTO) 3.5 10^3/uL (1.7-8.2); BASOPHILS % (AUTO) 1.2 % (0-2); EOSINOPHILS % (AUTO) 3.5 % (0-6); HEMATOCRIT 39.5 % (36.0-47.0); HEMOGLOBIN 13.2 g/dL (12.0-15.5); LYMPHOCYTES % (AUTO) 36.4 % (13-45); MEAN CORPUSCULAR HEMOGLOBIN 30.4 pg (27.0-33.4); MEAN CORPUSCULAR HGB CONC 33.5 g/dL (32.0-36.0); MEAN CORPUSCULAR VOLUME 91 fl (80-97); MONOCYTES % (AUTO) 5.6 % (3-13); PLATELET COUNT 205 10^3/uL (150-450); RED BLOOD COUNT 4.35 10^6/uL (3.72-5.28); SEGMENTED NEUTROPHILS % (AUTO) 53.3 % (42-78); TOTAL CELLS COUNTED % (AUTO) 100 %; WHITE BLOOD COUNT 6.6 10^3/uL (4.0-10.5)
--- NOTE | 2018-10-31 05:59 | ER Document Report ---
ED Blood Pressure Problem - General Chief Complaint: High Blood Pressure Stated Complaint: BLOOD PRESSURE PROBLEMS Time Seen by Provider: 10/31/18 05:38 Primary Care Provider: MARGARITA PARKER FNP [Primary Care Provider] - Follow up as needed Notes: 63-year-old female with coronary artery disease, RA, COPD presents to the emergency department for hypertension. She says that she has a headache and a little bit of neck pain but this is been going on for the last couple of days. Her main interest is reducing her blood pressure. She denies any recent illness, f confusion or altered mental status, Madhu, chills, nausea or vomiting, shortness of breath, denies chest pain, denies abdominal pain, denies urinary symptoms. Her curator is Dr. Kaminski out of [place]. She states that she is supposed to go see a cardiac surgeon on Sunday for consultation for a stent. No other complaints TRAVEL OUTSIDE OF THE [place] IN LAST 30 DAYS: No - Related Data Allergies/Adverse Reactions: pentazocine lactate [From [facility]] Allergy (Severe, Verified 02/08/16 06:37) [email or web address] Past Medical History - General Information source: Patient - Social History Smoking Status: Never Smoker Family History: CAD, Hyperlipidemia, Hypertension - Past Medical History Cardiac Medical History: Reports: Hx Atrial Fibrillation, Hx Hypercholesterolemia, Hx Hypertension Denies: Hx Coronary Artery Disease, Hx Heart Attack - pvc Pulmonary Medical History: Reports: Hx Asthma - inhalers, Hx Bronchitis - hx of, Hx COPD - o2 dependent Denies: Hx Pneumonia, Hx Tuberculosis Neurological Medical History: Denies: Hx Cerebrovascular Accident, Hx Seizures Endocrine Medical History: Reports: Hx Hypothyroidism Musculoskeletal Medical History: Reports Hx Arthritis - osteo, RA Psychiatric Medical History: Reports: Hx Anxiety, Hx Depression Past Surgical History: Reports: Hx Appendectomy, Hx Cholecystectomy, Hx Hysterectomy, Hx Orthopedic Surgery - back. Denies: Hx Pacemaker - Immunizations Hx Diphtheria, Pertussis, Tetanus Vaccination: Yes Hx Pneumococcal Vaccination: 08/22/14 Review of Systems - Review of Systems Constitutional: See HPI EENT: See HPI Cardiovascular: See HPI Respiratory: See HPI Gastrointestinal: See HPI Genitourinary: See HPI Female Genitourinary: No symptoms reported Musculoskeletal: See HPI Skin: No symptoms reported Hematologic/Lymphatic: No symptoms reported Neurological/Psychological: See HPI Physical Exam - Vital signs Vitals: Temp Pulse Resp BP Pulse Ox 98.3 F 65 22 H 246/98 H 98 10/31/18 05:00 10/31/18 05:00 10/31/18 05:00 10/31/18 05:00 10/31/18 05:00 - Notes Notes: PHYSICAL EXAMINATION: Reviewed vital signs and charting by RN GENERAL: Well-appearing, well-nourished and in no acute distress. HEAD: Atraumatic, normocephalic. No scalp deformity, depression, or crepitance. EYES: Pupils are 3 mm and equal/round/reactive to light, extraocular movements intact, sclera anicteric, conjunctiva are normal. NECK: Normal range of motion, supple without lymphadenopathy. LUNGS: Breath sounds present, equal, and clear to auscultation bilaterally. No wheezes, rales, or rhonchi. HEART: Regular rate and rhythm without murmurs, rubs, or gallops. 2+ peripheral pulses. Normal capillary refill. ABDOMEN: Soft, nontender, nondistended. Normoactive bowel sounds. No guarding, no rebound. No masses appreciated. EXTREMITIES: Normal range of motion, no pitting or edema. No cyanosis. NEUROLOGICAL: No focal neurological deficits. Alert and oriented. Moves all extremities spontaneously and on command. PSYCH: Normal mood, normal affect. No suicidal thoughts/ideations. No homocidal thoughts/ideations. No hallucinations. SKIN: Warm, dry, normal turgor, no rashes or lesions noted. Course - Re-evaluation Re-evalutation: 10/31/18 05:57 Overall well-appearing. Obtaining basic lab work to assess for endorgan damage. Discussed with Dr. Lilly. There is no concerns with her blood pressure and will not initiate treatment on it. 10/31/18 06:44 No evidence of any endorgan damage. I explained this to patient who is under the impression that he still prescribed "rescue pills I told her that all the current literature recommends strongly against treating asymptomatic hypertension in the emergency department. She is going to follow-up with her curator this morning. She is stable for discharge - Vital Signs Vital signs: Temp Pulse Resp BP Pulse Ox 98.3 F 65 17 230/96 H 96 10/31/18 05:00 10/31/18 05:00 10/31/18 05:45 05/16/19 05:45 10/31/18 05:45 - Laboratory Result Diagrams: 10/31/18 05:46 10/31/18 05:46 Laboratory results interpreted by me: 10/31/18 10/31/18 05:46 05:55 BUN 25 H Est GFR ( Amer) 59 L Est GFR (Non-Af Amer) 48 L Ur Leukocyte Esterase TRACE H Discharge - Discharge Clinical Impression: High blood pressure Qualifiers: Hypertension type: essential hypertension Qualified Code(s): I10 - Essential (primary) hypertension Condition: Good Disposition: HOME, SELF-CARE Instructions: High Blood Pressure ([facility]) Additional Instructions: You were seen in the emergency department this evening for high blood pressure. Because there is no evidence of any end organ damage the current body of literature recommends that we do not treat it. Studies have shown that it does more harm than good. Please follow-up with Dr. Kaminski this morning to address management strategies. If you develop acute chest pain, acute shortness of breath, intractable nausea or vomiting, weakness or paralysis in 1 or more of your extremities, confusion or altered mental status please immediately return to the emergency department peer Referrals: MARGARITA PARKER FNP [Primary Care Provider] - Follow up as needed
[2018-10-31 06:12] LABS: ALANINE AMINOTRANSFERASE 31 U/L (9-52); ALBUMIN 4.2 g/dL (3.5-5.0); ALKALINE PHOSPHATASE 61 U/L (38-126); ANION GAP 9 (5-19); ASPARTATE AMINO TRANSFERASE 26 U/L (14-36); BILIRUBIN,DIRECT 0.2 mg/dL (0.0-0.4); BILIRUBIN,TOTAL 0.4 mg/dL (0.2-1.3); BLOOD UREA NITROGEN 25 mg/dL (7-20); CALCIUM 9.3 mg/dL (8.4-10.2); CARBON DIOXIDE 29 mmol/L (22-30); CHLORIDE 104 mmol/L (98-107); GLUCOSE 100 mg/dL (75-110); POTASSIUM 3.6 mmol/L (3.6-5.0); SODIUM 142.4 mmol/L (137-145)
[2018-10-31 06:21] LABS: APPEARANCE,URINE CLEAR; BILIRUBIN,URINE NEGATIVE (NEGATIVE); COLOR,URINE STRAW; GLUCOSE, URINE NEGATIVE (NEGATIVE); KETONES,URINE NEGATIVE (NEGATIVE); LEUKOCYTE ESTERASE,URINE TRACE (NEGATIVE); NITRITE,URINE NEGATIVE (NEGATIVE); PROTEIN,URINE NEGATIVE (NEGATIVE); URINE SPECIFIC GRAVITY 1.006; UROBILINOGEN,URINE NEGATIVE mg/dL (<2.0)
--- NOTE | 2018-10-31 06:34 | EKG REPORT ---
SEVERITY:- ABNORMAL ECG - ATRIAL-PACED RHYTHM : Confirmed by: Sage Meier MD 31-Oct-2018 06:34:24
[2018-10-31 07:06] VITALS: BP 187/92
== END 2018-10-31 07:10 | disposition home or self-care (01) ==
LOC: ER 05:00
DX: I10 Essential (primary) hypertension (principal); R51 Headache; M54.2 Cervicalgia; I25.10 Atherosclerotic heart disease of native coronary artery without angina pectoris; J44.9 Chronic obstructive pulmonary disease, unspecified; Z88.5 Allergy status to narcotic agent
CPT/HCPCS: 36415; 80053; 81001; 84484; 85025; 93005; 93010; 99284